=== PATIENT | male | born 1945 | race Caucasian/White ===

== ENCOUNTER 2019-01-04 09:01 | Emergency (ER) | payer MEDICARE, OTHER ==
[~2019-01-04] VITALS: Ht 185.4 cm; Wt 172.7 kg
[~2019-01-04 09:01] MED LIST: /CELE20CA OR; ACYC400T OR; ALDA25TA2 PO; ASPI81TA45 OR; ASPI81TA45 PO; ATOR80TA59 PO; CARV12.5 PO; CARV6.25 PO; CELE1CAP9 PO; CYCL10TA PO; DIPH25CA PO; FISH OIL PO; FISH5CAP PO; FISHCAP PO; FLEXERIL PO; FURO40TA2 PO; GABA-843 PO; GABAPOW41 PO; GLUC500T OR; LORATADINE PO; MECL25TA2 OR; METF500T13 PO; NITR4TASL SL; PLAV75TA2 OR; PRAVAS; PRAVASTATIN PO; TRAZ-160 PO; [UNRECOGNIZED DRUG - OTHER] PO
== END 2019-01-04 11:49 | disposition expired ==
LOC: M ED 09:01
DX: I46.9 Cardiac arrest, cause unspecified (principal); E11.9 Type 2 diabetes mellitus without complications; I11.9 Hypertensive heart disease without heart failure; E78.5 Hyperlipidemia, unspecified; I25.10 Atherosclerotic heart disease of native coronary artery without angina pectoris; G47.33 Obstructive sleep apnea (adult) (pediatric); Z87.891 Personal history of nicotine dependence; Z91.048 Other nonmedicinal substance allergy status; Z79.899 Other long term (current) drug therapy; Z79.82 Long term (current) use of aspirin